=== PATIENT | male | born 1990 | race Caucasian/White ===

== ENCOUNTER → 2022-06-26 23:23 | Outpatient (CLI) | payer MEDICAID, SELFPAY ==
[2022-06-26 18:22] LABS: Basophils # 0.1 K/mm3 (0-0.2); Eosinophils # 0.3 K/mm3 (0.0-0.4); Eosinophils % 3.2 % (0.1-12.0); Hematocrit 43.4 % (42.0-52.0); Hemoglobin 14.9 g/dL (14.1-18.0); Mean Corpuscular HGB Conc 34.3 g/dL (31.8-35.4); Mean Corpuscular Hemoglobin 30.9 pg (27.0-31.2); Mean Corpuscular Volume 90.1 fl (80-94); Monocytes # 0.5 K/mm3 (0.1-1.0); Monocytes % 4.6 % (1.7-9.3); Neutrophils % 61.1 % (37.0-80.0); Platelet Count 236 K/mm3 (142-424); Red Blood Count 4.82 M/mm3 (4.60-6.20); Red Cell Distribution Width 13.8 % (11.5-17.5); White Blood Count 9.9 K/mm3 (4.8-10.8)
[2022-06-26 18:32] LABS: Alanine Aminotransferase 16 U/L (12-78); Albumin Level 4.7 g/dl (3.5-5.0); Albumin/Globulin Ratio 1.7 (1.1-1.8); Alkaline Phosphatase 61 U/L (38-126); Anion Gap 12.2 mEq/L (5-15); Aspartate Amino Transferase 30 U/L (17-59); Bilirubin,Total 0.5 mg/dl (0.2-1.3); Blood Urea Nitrogen 13 mg/dl (9-20); Calcium 9.4 mg/dl (8.4-10.2); Carbon Dioxide 26 mmol/L (22.0-30.0); Chloride 102 mmol/L (98-107); Chol/HDL Ratio 3.4 (1-3.5); Cholesterol 153 mg/dl (140-200); Estimated Glomerular Filt Rate 114 ml/min (>60); GFR (African American) 138 ML/MIN (>60); Globulin 2.7 g/dL (1.3-3.2); Glucose 91 mg/dl (74-100); HDL Cholesterol 45 mg/dl (40-60); Potassium 4.2 mmoL/L (3.5-5.1); Sodium 136 mmol/L (136-145); Total Protein,Serum 7.4 g/dl (6.3-8.2); Triglycerides 139 mg/dl (30-150); VLDL Cholesterol 28 mg/dL (0-40)
[2022-06-26 18:43] LABS: Direct LDL Cholesterol 73.35 mg/dL (100-129)
[2022-06-26 19:02] LABS: Thyroid Stimulating Hormone 1.36 uIU/mL (0.465-4.68)
== END ==
PROVIDERS: PCP Nurse Practitioner Family; Visit Provider Nurse Practitioner Family
DX: R53.83 Other fatigue (principal); I10 Essential (primary) hypertension; F41.9 Anxiety disorder, unspecified
CPT/HCPCS: 80053; 80061; 84443; 85025